=== PATIENT | female | born 1995 | race Caucasian/White ===

== ENCOUNTER 2017-06-23 17:01 | Emergency (ER) | payer MEDICAID, OTHER ==
--- NOTE | 2017-06-23 17:51 | PD ---
HPI Chief Complaint Lower abdominal pain. Travel History International Travel<30 Days: No Contact w/Intl Traveler<30Days: No Known Affected Area: No History of Present Illness HPI at 21w 4d with lower abdominal pain. YAIR 11-01-17. Reports beginning last week, but has not experienced any for the last 2 days. Denies urinary or bowel problems. Denies LOF/VB. : 1 History Past Medical History Medical History: Denies Significant Hx Past Surgical History Surgical History: No Previous Surgery Family History Family History: Negative Social History Alcohol Use: No Tobacco Use: No Substance Abuse: No Allergies-Medications (Allergen,Severity, Reaction): Coded Allergies: amoxicillin (Unverified Allergy, Severe, 05/26/17) cefaclor (Unverified Allergy, Severe, 05/26/17) Home Meds Active Scripts W/O Vit A W/ Fe Carbo (Prenate Mini 18-0.6-0.4-350 mg) 1 Cap Cap Prov:Radha Vogt 04/28/17 Physical Exam AFVSS BP 122/65 Narrative GENERAL: Well-nourished, well-developed patient. SKIN: Warm and dry. HEAD: Normocephalic and atraumatic. EYES: No scleral icterus. No injection or drainage. ENT: No nasal drainage noted. Mucous membranes pink. Airway patent. NECK: Supple, trachea midline. No JVD. CARDIOVASCULAR: Regular rate and rhythm without murmurs, gallops, or rubs. RESPIRATORY: Breath sounds equal bilaterally. No accessory muscle use. BREASTS: Bilateral exam showed no masses , no retractions, no nipple discharge. ABDOMEN/GI: Abdomen soft, non-tender, bowel sounds present, no rebound, no guarding Gravid to [-] weeks size Fundal Height: [-] GENITOURINARY: External Genitalia: intact and normal in appearance BUS glands: [-] Cervix: [-] Dilatation: [-] Effacement: [-] Station: [-] Presentation: [-] Membranes: [intact or ruptured] Uterine Contractions: [none] FHT's: 150s Category: [-] Baseline: [-] Reactive: [-] Variability: [-] Decels: [-] EXTREMITIES: No cyanosis or edema. BACK: Nontender without obvious deformity. No CVA tenderness. NEUROLOGICAL: Awake and alert. Motor and sensory grossly within normal limits. Five out of 5 muscle strength in all muscle groups. Normal speech. Data Data Vital Signs Reviewed: Yes MDM Interpretation(s) IUP at 21w 4d with lower abdominal pain. Plan Will monitor. Supportive therapies, OTC medication, and hydration d/w patient. Close f/u with OB provider encouraged. All questions answered. Diagnosis Diagnosis: Primary Impression: 21 weeks gestation of Additional Impression: Abdominal pain during in second trimester Disposition: 01 DISCHARGE HOME Condition: Stable Marni Randolph MD Jun 23, 2017 17:51
[2017-07-08] MEDS ORDERED: PREN1CAP PO (10:56)
[2017-07-15] MEDS ORDERED: PREN1TAB20 PO (16:17)
[2017-07-19] MEDS ORDERED: ZANT150T2 PO (09:54)
== END 2017-06-23 18:58 | disposition home or self-care (01) ==
LOC: HOBED 17:01
DX: O26.892 Other specified pregnancy related conditions, second trimester (principal); R10.30 Lower abdominal pain, unspecified; Z3A.21 21 weeks gestation of pregnancy
CPT/HCPCS: 99283

== ENCOUNTER → 2017-07-08 | Outpatient (CLI) | payer MEDICAID ==
[~2017-07-08] MED LIST: PREN1CAP PO; PREN1TAB20 PO; ZANT150T2 PO
== END ==
LOC: HPND 13:31
PROVIDERS: ATTEND Obstetrics & Gynecology
DX: Z36 Encounter for antenatal screening of mother (principal); Z3A.22 22 weeks gestation of pregnancy
CPT/HCPCS: 76805

== ENCOUNTER 2017-09-28 04:34 | Emergency (ER) | payer MEDICAID ==
[~2017-09-28 04:34] MED LIST changes: -PREN1CAP PO
[2017-09-28 05:28] LABS: AMORPHOUS SEDIMENT, URINE RARE; BACTERIA, URINE MOD /hpf; BILIRUBIN, URINE NEG (NEG); BLOOD, URINE TRACE (NEG); GLUCOSE,URINE NEG (NEG); KETONE, URINE NEG (NEG); MUCUS URINE FEW /lpf (OCC); NITRITE,URINE NEG (NEG); RENAL EPITHELIAL CELLS <1 /hpf; SQUAMOUS EPITHELIAL CELL URINE 31 /hpf (0-5); URINE COLOR YELLOW (YELLW/STRAW); URINE LEUKOCYTE ESTERASE LARGE (NEG)
--- NOTE | 2017-09-28 05:34 | PD ---
HPI Chief Complaint pressure/ctx Date Seen: Sep 28, 2017 Time Seen: 05:24 Travel History International Travel<30 Days: No Contact w/Intl Traveler<30Days: No Known Affected Area: No History of Present Illness HPI Pt is a 22y/o G1 @ 35.1wks. She has PNC at [facility]. She presents to triage for c/o pelvic pain and pressure. She denies LOF, VB, or ctx. +FM. is complicated by SGA. Pt is having routine US for growth. Weeks Gestation: 35 Para: 0 : 1 History Past Medical History Medical History: Denies Significant Hx Obstetric History Obstetric History 1. current Past Surgical History Narrative Surgical wisdom teeth extraction appendectomy Family History Family History: Negative Social History Alcohol Use: No Tobacco Use: No Substance Abuse: No Allergies-Medications (Allergen,Severity, Reaction): Coded Allergies: amoxicillin (Unverified Allergy, Severe, 09/24/17) cefaclor (Unverified Allergy, Severe, 09/24/17) Home Meds Active Scripts Ranitidine (Zantac) 150 Mg Tab, 150 MG PO BID for Reduce Stomach Acid, #60 TAB 6 Refills Prov:Milvia RodriguezP 07/19/17 W/O Vit A W/ Fe Carbonyl (Citranatal Rx) 27-1 Mg Tab, 1 TAB PO DAILY for Nutritional Supplement, #30 TAB 11 Refills Prov:Milvia RodriguezP 07/15/17 W/O Vit A W/ Fe Carbo (Prenate Mini 18-0.6-0.4-350 mg) 1 Cap Cap Prov:Radha Vogt CNM [place] 04/28/17 Review of Systems Except as stated in HPI: all other systems reviewed are Neg Physical Exam Narrative General: well developed, well nourished, no acute distress HEENT: normocephalic atraumatic, extraocular movements intact, neck supple Abdomen: soft, gravid, nontender, nondistended Uterus: fundus non-tender Extremities: full range of motion Skin: normal coloration, no rashes, no suspicious skin lesions noted Neurologic: cranial nerves 2-12 grossly intact, normal muscle tone, normal gait Psychiatric: normal mood and affect, appropriate FHTs: 135, +accels, single mild variable associated with movement, moderate variability, reactive [place]: quiet Cvx: FT/th/-2 UA: large LE, trace blood, trace protein, neg nitrites Data Data Vital Signs Reviewed: Yes Orders Orders Vital Signs (Adult) .ON ADMISSION (09/28/17 05:11) ^ Labor Status (09/28/17 05:11) Urinalysis - C+S If Indicated (09/28/17 05:11) ^ Non Stress Test (09/28/17 05:11) Labs Laboratory Tests Test 09/28/17 05:03 MDM Plan 22y/o G1 @ 35.1wks with UTI -- Rx macrobid -- NST reactive -- cvx finger tip Dispo: stable for d/c home with precautions, f/u on as scheduled for PNC Diagnosis Diagnosis: Primary Impression: 35 weeks gestation of Additional Impressions: UTI (urinary tract infection) during Pelvic pain affecting in third trimester, antepartum SGA (small for gestational age) Irene Shipley MD Sep 28, 2017 05:34
[2017-09-28] MEDS ORDERED: AZIT500T2 PO (09:20)
== END 2017-09-28 05:34 | disposition home or self-care (01) ==
LOC: HOBED 04:50
DX: O23.43 Unspecified infection of urinary tract in pregnancy, third trimester (principal); B96.89 Other specified bacterial agents as the cause of diseases classified elsewhere; O36.5930 Maternal care for other known or suspected poor fetal growth, third trimester, not applicable or unspecified; Z3A.35 35 weeks gestation of pregnancy
CPT/HCPCS: 59025; 81001; 87086

== ENCOUNTER 2017-09-28 14:07 | Inpatient (IN) | payer MEDICAID ==
[~2017-09-28] VITALS: Ht 162.6 cm; Wt 63.5 kg
[2017-09-28] VITALS (24 sets, daily range): BP systolic 99–143; BP diastolic 55–91; PULSE 66–113; RESP 16–18; TEMP 98.6
[~2017-09-28 14:07] MED LIST changes: +AZIT500T2 PO
[2017-09-28] MEDS ORDERED: LACTATED RINGER'S 1000 ML INJ 1,000 ML IV PRN (14:41)
[2017-09-28] MEDS ORDERED: LACTATED RINGER'S 1000 ML INJ 1,000 ML IV SCH (14:41)
[2017-09-28] MEDS ORDERED: SODIUM CHLORID 0.9% 500 ML INJ 500 ML IV PRN (14:45)
[2017-09-28] MEDS ORDERED: OXYTOCIN 30 UNITS-500ML PREMIX 500 ML IV ONE ×2 (14:45→17:45)
[2017-09-28] MEDS ORDERED: CITRIC ACID-SODIUM CITRATE LIQ 30 ML UDC PO SCH (14:45)
[2017-09-28] MEDS ORDERED: LIDOCAINE HCL 1% 50 ML VIAL I-DERMAL PRN (14:45)
[2017-09-28] MEDS ORDERED: LIDOCAINE HCL 1% 50 ML VIAL INFIL PRN (14:45)
[2017-09-28] MEDS ORDERED: MINERAL OIL 10 ML VIAL TOPICAL PRN (14:45)
[2017-09-28] MEDS ORDERED: SODIUM CHLOR 0.9% 1000 ML INJ 1,000 ML IV PRN (15:01)
[2017-09-28] MEDS ORDERED: fentaNYL 2MCG-BUPIV 0.125% INJ 100 ML ONE (15:13)
[2017-09-28 15:27] LABS: AUTOMATED NEUTROPHIL # 11.6 TH/MM3 (1.8-7.7); BASOPHIL % 0.1 % (0.0-2.0); EOSINOPHIL % 0.2 % (0.0-4.0); HEMATOCRIT 38.3 % (35.0-46.0); HEMO FLAGS DIFF FINAL; LYMPH % 11.9 % (9.0-44.0); LYMPHOCYTE # 1.7 TH/MM3 (1.0-4.8); MEAN CELL VOLUME 86.5 FL (80.0-100.0); MEAN CORPUSCULAR HEMOGLOBIN 30.5 PG (27.0-34.0); MEAN CORPUSCULAR HGB CONC 35.2 % (32.0-36.0); MONO % 8.3 % (0.0-8.0); NEUT % 79.5 % (16.0-70.0); PLATELET COUNT 136 TH/MM3 (150-450); RED BLOOD COUNT 4.42 MIL/MM3 (4.00-5.30); RED CELL DISTRIBUTION WIDTH 12.9 % (11.6-17.2); WHITE BLOOD COUNT 14.6 TH/MM3 (4.0-11.0)
[2017-09-28] MEDS ORDERED: DIPHTH/TETANUS/ACEL PERTUSSIS (BOOSTER) 0.5 ML VIAL/PFS IM ONE (16:00)
[2017-09-28] MEDS ORDERED: VANCOMYCIN INJ 1,000 MG in SODIUM CHLOR 0.9% 250 ML INJ 250 ML IV SCH (16:00)
[2017-09-28] MEDS ORDERED: MEASLES, MUMPS, RUBELLA VACCINE 0.5 ML VIAL SQ ONE (16:00)
[2017-09-28] MEDS ORDERED: DO NOT ADMINISTER ANTICOAGULANTS PRN (16:15)
[2017-09-28] MEDS ORDERED: fentaNYL 2MCG-BUPIV 0.125% 100 ML EPIDURAL SCH (16:15)
[2017-09-28] MEDS ORDERED: NO SYSTEM NARCOTICS PRN (16:15)
[2017-09-28] MEDS ORDERED: ePHEDrine/NS 25 MG/5 ML SYRINGE IV PUSH PRN (16:15)
--- NOTE | 2017-09-28 16:16 | PD ---
HPI Chief Complaint contractions, labor Date Seen: Sep 28, 2017 Time Seen: 14:40 Travel History International Travel<30 Days: No Contact w/Intl Traveler<30Days: No History of Present Illness HPI Patient is a 22 year old at 35 and 1/7 weeks gestation, EDC 11/01/2017, who presents to the OB ED reporting contractions and dilation of 6cm in clinic. She denies leakage of fluid, vaginal bleeding. She feels baby moving regularly. She denies HOOK/N/V/D/fever/sick contacts/SOB/calf pain/dizziness/seeing spots. OB care is with [facility]. History Past Medical History Medical History: Denies Significant Hx Past Surgical History Surgical History: No Previous Surgery Family History Family History: Negative Social History Alcohol Use: No Tobacco Use: No Substance Abuse: No Allergies-Medications (Allergen,Severity, Reaction): Coded Allergies: amoxicillin (Unverified Allergy, Severe, 09/28/17) cefaclor (Unverified Allergy, Severe, 09/28/17) Home Meds Active Scripts Azithromycin (Azithromycin) 500 Mg Tab, 500 MG PO DAILY for Infection, #7 TAB 0 Refills Prov:Pancho Rene MD 09/28/17 Ranitidine (Zantac) 150 Mg Tab, 150 MG PO BID for Reduce Stomach Acid, #60 TAB 6 Refills Prov:Milvia Rodriguez 07/19/17 W/O Vit A W/ Fe Carbonyl (Citranatal Rx) 27-1 Mg Tab, 1 TAB PO DAILY for Nutritional Supplement, #30 TAB 11 Refills Prov:Milvia Rodriguez 07/15/17 W/O Vit A W/ Fe Carbo (Prenate Mini 18-0.6-0.4-350 mg) 1 Cap Cap Prov:Radha Vogt CNMP 04/28/17 Review of Systems Except as stated in HPI: all other systems reviewed are Neg Physical Exam Vital Signs Date Time Temp Pulse Resp B/P (MAP) Pulse Ox O2 Delivery O2 Flow Rate FiO2 09/28/17 15:40 66 121/60 (80) 09/28/17 15:36 73 128/55 (79) 09/28/17 15:35 68 09/28/17 15:33 73 143/91 (108) 09/28/17 15:30 73 Narrative GENERAL: Well-nourished, well-developed patient. SKIN: Warm and dry. HEAD: Normocephalic and atraumatic. EYES: No scleral icterus. No injection or drainage. ENT: No nasal drainage noted. Mucous membranes pink. Airway patent. NECK: Supple, trachea midline. No JVD. CARDIOVASCULAR: Regular rate and rhythm without murmurs, gallops, or rubs. RESPIRATORY: Breath sounds equal bilaterally. No accessory muscle use. ABDOMEN/GI: Abdomen gravid, palpates moderate on CTX, non-tender, bowel sounds present, no rebound, no guarding GENITOURINARY: External Genitalia: intact and normal in appearance Cervix: 7/80/-2, bulging bag Uterine Contractions: q4min FHT's: Category: 1 Baseline: 130s Reactive: 150s Variability: mod Decels: absent EXTREMITIES: No cyanosis or edema. BACK: Nontender without obvious deformity. No CVA tenderness. NEUROLOGICAL: Awake and alert. Motor and sensory grossly within normal limits. Five out of 5 muscle strength in all muscle groups. Normal speech. Data Data Vital Signs Reviewed: Yes Orders Orders Ob (2e) Additional Admit Info (09/28/17 14:33) Admit To Inpatient (09/28/17 ) Code Status (09/28/17 14:41) Vital Signs (Adult) .Per protocol (09/28/17 14:41) Activity Oob Ad Sanaz (09/28/17 14:41) Heart (09/28/17 14:41) Amnioinfusion (09/28/17 14:41) Urinary Catheter Management .ONCE (09/28/17 14:41) Diet Npo (09/28/17 Dinner) Lactated Ringer's 1000 Ml Inj (Lr 1000 M (09/28/17 14:41) Lactated Ringer's 1000 Ml Inj (Lr 1000 M (09/28/17 14:41) Sodium Chlorid 0.9% 500 Ml Inj (Ns 500 M (09/28/17 14:45) Sodium Chlor 0.9% 1000 Ml Inj (Ns 1000 M (09/28/17 15:01) Lidocaine 1% Inj (50 Ml) (Xylocaine 1% I (09/28/17 14:45) Citric Acid-Sodium Citrate Liq (Bicitra (09/28/17 14:45) Fentanyl Inj (Fentanyl Inj) (09/28/17 14:45) Fentanyl Inj (Fentanyl Inj) (09/28/17 14:45) Vancomycin Inj (Vancomycin Inj) (09/28/17 16:00) Complete Blood Count With Diff (09/28/17 14:41) Hold Clot (09/28/17 14:41) Abo/Rh Blood Type (09/28/17 14:41) Urinalysis - C+S If Indicated (09/28/17 14:41) Drug Screen, Random Urine (09/28/17 14:41) Resp Oxygen Non Rebreathe Mask (09/28/17 ) ^ Epidural / Intrathecal Infus (09/28/17 14:41) Oxytocin 30 Units-500ml Premix (Pitocin (09/28/17 14:45) Lidocaine 1% Inj (50 Ml) (Xylocaine 1% I (09/28/17 14:45) Light Mineral Oil (Muri-Lube Oil) (09/28/17 14:45) Inpatient Certification (09/28/17 ) Specimen To Be Collected PRN (09/28/17 14:41) Specimen To Be Collected PRN (09/28/17 14:41) Fentanyl 2mcg-Bupiv 0.125% Inj (Fentanyl (09/28/17 15:13) ^ Place On Chart (09/28/17 ) ^ Medication Indications (09/28/17 ) Consent (09/28/17 ) ^ No Systemic Narcotics (09/28/17 ) ^ Call Anesthesiologist (09/28/17 ) ^ Discontinue Epidural Cathete (09/28/17 ) Anticoagulant Alert (09/28/17 ) ^ Epidural Alert (09/28/17 ) Group B Strep: Positive Labs Laboratory Tests Test 09/28/17 14:45 White Blood Count 14.6 Red Blood Count 4.42 Hemoglobin 13.5 Hematocrit 38.3 Mean Corpuscular Volume 86.5 Mean Corpuscular Hemoglobin 30.5 Mean Corpuscular Hemoglobin Concent 35.2 Red Cell Distribution Width 12.9 Platelet Count 136 Mean Platelet Volume 10.0 Neutrophils (%) (Auto) 79.5 Lymphocytes (%) (Auto) 11.9 Monocytes (%) (Auto) 8.3 Eosinophils (%) (Auto) 0.2 Basophils (%) (Auto) 0.1 Neutrophils # (Auto) 11.6 Lymphocytes # (Auto) 1.7 Monocytes # (Auto) 1.2 Eosinophils # (Auto) 0.0 Basophils # (Auto) 0.0 CBC Comment DIFF FINAL Differential Comment MDM Medical Record Reviewed: Yes Narrative Course / MDM 22 year old at 35 and 1/7 weeks gestation, EDC 11/01/2017, who presents to the OB ED reporting contractions and dilation of 6cm in clinic. She denies leakage of fluid, vaginal bleeding. She feels baby moving regularly. She denies HOOK/N/V/D/fever/sick contacts/SOB/calf pain/dizziness/seeing spots. OB care is with [facility]. Intrauterine , labor: Category 1 tracing EFW 2400g based on US 2 weeks ago showing EFW 4lb 3oz GBS positive, allergy to PCN, will give Vancomycin Will obtain routine labs incl CBC, CMP, UA IV fluids Epidural Monitor heart tones Routine care GBS positive: Start IV Vancomycin SABINEW Araseli Peña MD R2 Sep 28, 2017 16:16
--- NOTE | 2017-09-28 16:24 | HHI.HP ---
HPI Chief Complaint Labor Date Seen: Sep 28, 2017 Time Seen: 16:22 Travel History International Travel<30 Days: No Contact w/Intl Traveler<30Days: No History of Present Illness HPI Patient is a 22 year old at 35 and 1/7 weeks gestation, EDC 11/01/2017, who presents to the OB ED reporting contractions and dilation of 6cm in clinic. She denies leakage of fluid, vaginal bleeding. She feels baby moving regularly. She denies HOOK/N/V/D/fever/sick contacts/SOB/calf pain/dizziness/seeing spots. OB care is with [facility]. History Past Medical History Medical History: Denies Significant Hx Past Surgical History Surgical History: No Previous Surgery Family History Family History: Negative Social History Alcohol Use: No Tobacco Use: No Substance Abuse: No Allergies-Medications (Allergen,Severity, Reaction): Coded Allergies: amoxicillin (Unverified Allergy, Severe, 09/28/17) cefaclor (Unverified Allergy, Severe, 09/28/17) Home Meds Active Scripts Azithromycin (Azithromycin) 500 Mg Tab, 500 MG PO DAILY for Infection, #7 TAB 0 Refills Prov:Pancho Rene MD 09/28/17 Ranitidine (Zantac) 150 Mg Tab, 150 MG PO BID for Reduce Stomach Acid, #60 TAB 6 Refills Prov:Milvia Rodriguez 07/19/17 W/O Vit A W/ Fe Carbonyl (Citranatal Rx) 27-1 Mg Tab, 1 TAB PO DAILY for Nutritional Supplement, #30 TAB 11 Refills Prov:Milvia Rodriguez 07/15/17 W/O Vit A W/ Fe Carbo (Prenate Mini 18-0.6-0.4-350 mg) 1 Cap Cap Prov:Radha Vogt CNMP 04/28/17 Review of Systems Except as stated in HPI: all other systems reviewed are Neg Physical Exam Vital Signs Date Time Temp Pulse Resp B/P (MAP) Pulse Ox O2 Delivery O2 Flow Rate FiO2 09/28/17 16:05 83 99/58 (72) 09/28/17 16:00 70 105/58 (74) 09/28/17 15:40 66 121/60 (80) 09/28/17 15:36 73 128/55 (79) 09/28/17 15:35 68 09/28/17 15:33 73 143/91 (108) 09/28/17 15:30 73 Narrative GENERAL: Well-nourished, well-developed patient. SKIN: Warm and dry. HEAD: Normocephalic and atraumatic. EYES: No scleral icterus. No injection or drainage. ENT: No nasal drainage noted. Mucous membranes pink. Airway patent. NECK: Supple, trachea midline. No JVD. CARDIOVASCULAR: Regular rate and rhythm without murmurs, gallops, or rubs. RESPIRATORY: Breath sounds equal bilaterally. No accessory muscle use. ABDOMEN/GI: Abdomen gravid, palpates moderate on CTX, non-tender, bowel sounds present, no rebound, no guarding GENITOURINARY: External Genitalia: intact and normal in appearance Cervix: 7/80/-2, bulging bag Uterine Contractions: q4min FHT's: Category: 1 Baseline: 130s Reactive: 150s Variability: mod Decels: absent EXTREMITIES: No cyanosis or edema. BACK: Nontender without obvious deformity. No CVA tenderness. NEUROLOGICAL: Awake and alert. Motor and sensory grossly within normal limits. Five out of 5 muscle strength in all muscle groups. Normal speech. Caprini VTE Risk Assessment Caprini VTE Risk Assessment: No/Low Risk (score <= 1) Caprini Risk Assessment Model Point Value = 1 Point Value = 2 Point Value = 3 Point Value = 5 Age 41-60 Minor surgery BMI > 25 kg/m2 Swollen legs Varicose veins or History of unexplained or recurrent spontaneous Oral contraceptives or hormone replacement Sepsis (< 1 month) Serious lung disease, including pneumonia (< 1 month) Abnormal pulmonary function Acute myocardial infarction Congestive heart failure (< 1 month) History of inflammatory bowel disease Medical patient at bed rest Age 61-74 Arthroscopic surgery Major open surgery (> 45 min) Laparoscopic surgery (> 45 min) Malignancy Confined to bed (> 72 hours) Immobilizing plaster cast Central venous access Age >= 75 History of VTE Family history of VTE Factor V Leiden Prothrombin [id number] Lupus anticoagulant Anticardiolipin antibodies Elevated serum homocysteine Heparin-induced thrombocytopenia Other congenital or acquired thrombophilia Stroke (< 1 month) Elective arthroplasty Hip, pelvis, or leg fracture Acute spinal cord injury (< 1 month) Prophylaxis Regimen Total Risk Factor Score Risk Level Prophylaxis Regimen 0-1 Low Early ambulation 2 Moderate Order ONE of the following: *Sequential Compression Device (SCD) *Heparin 5000 units SQ BID 3-4 Higher Order ONE of the following medications: *Heparin 5000 units SQ TID *Enoxaparin/Lovenox 40 mg SQ daily (WT < 150 kg, CrCl > 30 mL/min) *Enoxaparin/Lovenox 30 mg SQ daily (WT < 150 kg, CrCl > 10-29 mL/min) *Enoxaparin/Lovenox 30 mg SQ BID (WT < 150 kg, CrCl > 30 mL/min) AND/OR *Sequential Compression Device (SCD) 5 or more Highest Order ONE of the following medications: *Heparin 5000 units SQ TID (Preferred with Epidurals) *Enoxaparin/Lovenox 40 mg SQ daily (WT < 150 kg, CrCl > 30 mL/min) *Enoxaparin/Lovenox 30 mg SQ daily (WT < 150 kg, CrCl > 10-29 mL/min) *Enoxaparin/Lovenox 30 mg SQ BID (WT < 150 kg, CrCl > 30 mL/min) AND *Sequential Compression Device (SCD) Data Data Vital Signs Reviewed: Yes (wnl) Orders Orders Ob (2e) Additional Admit Info (09/28/17 14:33) Admit To Inpatient (09/28/17 ) Code Status (09/28/17 14:41) Vital Signs (Adult) .Per protocol (09/28/17 14:41) Activity Oob Ad Sanaz (09/28/17 14:41) Heart (09/28/17 14:41) Amnioinfusion (09/28/17 14:41) Urinary Catheter Management .ONCE (09/28/17 14:41) Diet Npo (09/28/17 Dinner) Lactated Ringer's 1000 Ml Inj (Lr 1000 M (09/28/17 14:41) Lactated Ringer's 1000 Ml Inj (Lr 1000 M (09/28/17 14:41) Sodium Chlorid 0.9% 500 Ml Inj (Ns 500 M (09/28/17 14:45) Sodium Chlor 0.9% 1000 Ml Inj (Ns 1000 M (09/28/17 15:01) Lidocaine 1% Inj (50 Ml) (Xylocaine 1% I (09/28/17 14:45) Citric Acid-Sodium Citrate Liq (Bicitra (09/28/17 14:45) Fentanyl Inj (Fentanyl Inj) (09/28/17 14:45) Fentanyl Inj (Fentanyl Inj) (09/28/17 14:45) Vancomycin Inj (Vancomycin Inj) (09/28/17 16:00) Complete Blood Count With Diff (09/28/17 14:41) Hold Clot (09/28/17 14:41) Abo/Rh Blood Type (09/28/17 14:41) Urinalysis - C+S If Indicated (09/28/17 14:41) Drug Screen, Random Urine (09/28/17 14:41) Resp Oxygen Non Rebreathe Mask (09/28/17 ) ^ Epidural / Intrathecal Infus (09/28/17 14:41) Oxytocin 30 Units-500ml Premix (Pitocin (09/28/17 14:45) Lidocaine 1% Inj (50 Ml) (Xylocaine 1% I (09/28/17 14:45) Light Mineral Oil (Muri-Lube Oil) (09/28/17 14:45) Inpatient Certification (09/28/17 ) Specimen To Be Collected PRN (09/28/17 14:41) Specimen To Be Collected PRN (09/28/17 14:41) Fentanyl 2mcg-Bupiv 0.125% Inj (Fentanyl (09/28/17 15:13) ^ Place On Chart (09/28/17 ) ^ Medication Indications (09/28/17 ) Consent (09/28/17 ) ^ No Systemic Narcotics (09/28/17 ) ^ Call Anesthesiologist (09/28/17 ) ^ Discontinue Epidural Cathete (09/28/17 ) Anticoagulant Alert (09/28/17 ) ^ Epidural Alert (09/28/17 ) Misc Nursing Information (09/28/17 16:15) Misc Nursing Information (09/28/17 16:15) Fentanyl Inj (Fentanyl Inj) (09/28/17 16:15) Fentanyl 2mcg-Bupiv 0.125% Inj (Fentanyl (09/28/17 16:15) Ephedrine/Ns 25 Mg/5 Ml Syr (Ephedrine/N (09/28/17 16:15) Group B Strep: Positive Labs Laboratory Tests Test 09/28/17 14:45 White Blood Count 14.6 Red Blood Count 4.42 Hemoglobin 13.5 Hematocrit 38.3 Mean Corpuscular Volume 86.5 Mean Corpuscular Hemoglobin 30.5 Mean Corpuscular Hemoglobin Concent 35.2 Red Cell Distribution Width 12.9 Platelet Count 136 Mean Platelet Volume 10.0 Neutrophils (%) (Auto) 79.5 Lymphocytes (%) (Auto) 11.9 Monocytes (%) (Auto) 8.3 Eosinophils (%) (Auto) 0.2 Basophils (%) (Auto) 0.1 Neutrophils # (Auto) 11.6 Lymphocytes # (Auto) 1.7 Monocytes # (Auto) 1.2 Eosinophils # (Auto) 0.0 Basophils # (Auto) 0.0 CBC Comment DIFF FINAL Differential Comment Assessment/Plan Problem List: (1) labor in third trimester ICD Codes: O60.03 - labor without delivery, third trimester Status: Acute Assessment and Plan 22 year old at 35 and 1/7 weeks gestation, EDC 11/01/2017, who presents to the OB ED reporting contractions and dilation of 6cm in clinic. She denies leakage of fluid, vaginal bleeding. She feels baby moving regularly. She denies HOOK/N/V/D/fever/sick contacts/SOB/calf pain/dizziness/seeing spots. OB care is with [facility]. Intrauterine , labor: Category 1 tracing EFW 2400g based on US 2 weeks ago showing EFW 4lb 3oz GBS positive, allergy to PCN, will give Vancomycin Will obtain routine labs incl CBC, CMP, UA IV fluids Epidural Monitor heart tones Routine care GBS positive: Start IV Vancomycin SABINEW Araseli Peña MD R2 Sep 28, 2017 16:24
[2017-09-28] MEDS ORDERED: LIDOCAINE HCL 1% 20 ML VIAL ONE (17:21)
--- NOTE | 2017-09-28 17:43 | PD.OB.DELI ---
Weeks gestation: 35 Pt started active labor?: Yes Artificial rupture of membrane: No Anesthesia: Epidural, Lidocaine local to perineum Episiotomy: Midline Vaginal Delivery: Normal Presentation: Occiput anterior Nuchal Cord: x1 Delayed cord clamping (45 sec): Yes Infant: Male Delivery date: Sep 28, 2017 Delivery time: 17:20 One Minute : 9 Five Minute : 9 Placenta: Spontaneous delivery, 3 vessel cord Laceration: 2 deg Repair: Chromic running Estimated blood loss: 200 cc. Additional Information Midline episiotomy 2nd degree repaird with 3-0 chromic running suture. Delivery assisted by Dr. Wells. Stevie Mccabe MD, R3 Sep 28, 2017 17:43
[2017-09-28] MEDS ORDERED: ZOLPIDEM TARTRATE 5 MG TAB PO PRN (17:45)
[2017-09-28] MEDS ORDERED: SODIUM CHLORIDE 0.9% FLUSH 10 ML FLUSH IV FLUSH PRN (17:45)
[2017-09-28] MEDS ORDERED: OXYTOCIN 30 UNITS-500ML PREMIX 500 ML IV SCH (17:45)
[2017-09-28] MEDS ORDERED: ALUMINUM/MAGNESIUM/SIMETH 30 ML CUP PO PRN (17:45)
[2017-09-28] MEDS ORDERED: BENZOCAINE 20% TOPICAL SPRAY 60 ML CAN TOPICAL PRN (17:45)
[2017-09-28] MEDS ORDERED: WITCH HAZEL 50%/GLYCERIN 12.5% 40 PAD JAR TOPICAL PRN (17:45)
[2017-09-28] MEDS ORDERED: ONDANSETRON ODT 4 MG TAB PO PRN (17:45)
[2017-09-28] MEDS: IBUPROFEN 800 MG TAB PO PRN (20:56)
[2017-09-28] MEDS ORDERED: SODIUM CHLORIDE 0.9% FLUSH 10 ML FLUSH IV FLUSH SCH (21:00)
[2017-09-28] MEDS: ACETAMINOPHEN 325 MG TAB PO PRN (23:45)
[2017-09-29] VITALS: BP 128/69; PULSE 79; RESP 18; TEMP 97.6; O2SAT 99
[2017-09-29 08:00] VITALS: BP 128/83; PULSE 79; RESP 16; TEMP 98.1
[2017-09-29] MEDS: IBUPROFEN 800 MG TAB PO PRN ×2 (08:09→16:16)
[2017-09-29] MEDS: ACETAMINOPHEN 325 MG TAB PO PRN ×2 (08:09→13:41)
--- NOTE | 2017-09-29 08:52 | HHI.OB ---
Subjective Post Day: 1 Remarks day # 1. AFVSS overnight. Decreased lochia. Denies dysuria. No breast tenderness. She is feeding the baby via breast.. Appetite good. No nausea or vomiting. Ambulating well. Denies calf pain or shortness of breath. Otherwise, she is doing well this morning and has no other concerns. Objective Vitals/I&O Vital Signs Date Time Temp Pulse Resp B/P (MAP) Pulse Ox O2 Delivery O2 Flow Rate FiO2 09/29/17 00:00 97.6 18 99 09/29/17 00:00 79 128/69 (88) 09/28/17 21:00 89 126/72 (90) 09/28/17 20:43 98.6 91 18 114/74 (87) 09/28/17 20:09 92 18 119/73 (88) 09/28/17 19:00 98.6 09/28/17 19:00 18 09/28/17 18:45 80 09/28/17 18:45 18 09/28/17 18:45 125/61 (82) 09/28/17 18:30 82 122/88 (99) 09/28/17 18:24 16 09/28/17 18:15 77 103/67 (79) 09/28/17 18:13 16 09/28/17 18:00 113 109/58 (75) 09/28/17 17:56 16 09/28/17 17:45 92 127/60 (82) 09/28/17 17:38 94 126/65 (85) 09/28/17 17:38 16 09/28/17 17:38 16 09/28/17 16:10 73 115/64 (81) 09/28/17 16:05 83 99/58 (72) 09/28/17 16:00 70 105/58 (74) 09/28/17 15:55 72 111/56 (74) 09/28/17 15:50 79 107/59 (75) 09/28/17 15:45 75 114/61 (78) 09/28/17 15:40 66 121/60 (80) 09/28/17 15:36 73 128/55 (79) 09/28/17 15:35 68 09/28/17 15:33 73 143/91 (108) 09/28/17 15:30 73 Objective Remarks GENERAL: Well-nourished, well-developed patient. CARDIOVASCULAR: Regular rate and rhythm without murmurs, gallops, or rubs. RESPIRATORY: Breath sounds equal bilaterally. No accessory muscle use. ABDOMEN/GI: Abdomen soft, non-tender. Fundus: Firm, non-tender at umbilicus. GENITOURINARY: Light to moderate bleeding. EXTREMITIES: No cyanosis or edema, non-tender, without signs of DVT. Medications and IVs Current Medications Medications (Trade) Dose Ordered Sig/Duyen Route Start Time Stop Time Status Last Admin (NS Flush) 2 ml BID IV FLUSH 09/28/17 21:00 (NS Flush) 2 ml UNSCH PRN IV FLUSH 09/28/17 17:45 (Tylenol) 650 mg Q4H PRN PO 09/28/17 17:45 09/29/17 08:09 (Motrin) 800 mg Q8H PRN PO 09/28/17 17:45 09/29/17 08:09 (Americaine 20% Top Spr) 1 spray Q4H PRN TOPICAL 09/28/17 17:45 09/28/17 23:45 (Tucks Pads) 1 applic QID PRN TOPICAL 09/28/17 17:45 09/28/17 23:45 (Steff-Colace) 2 tab Q12H PRN PO 09/28/17 17:45 (Ambien) 5 mg HS PRN PO 09/28/17 17:45 (Mag-Al Plus Susp Liq) 15 ml Q8H PRN PO 09/28/17 17:45 (Zofran Odt) 4 mg Q6H PRN PO 09/28/17 17:45 Assessment/Plan Problem List: (1) labor in third trimester ICD Codes: O60.03 - labor without delivery, third trimester Status: Acute Assessment and Plan 22 y/o female who is PPD# 1 s/p . GBS positive. -Continue routine care. -Percocet and Motrin PRN pain. -Encouraged OOB. Advised pelvic rest for 6 wks. -Re: ctrl, she is undecided. -Anticipate discharge tomorrow. Araseli Grimm Dr., MD R2 Sep 29, 2017 08:52
[2017-09-29 11:36] LABS: HEMATOCRIT 32.3 % (35.0-46.0); MEAN CELL VOLUME 87.2 FL (80.0-100.0); MEAN CORPUSCULAR HEMOGLOBIN 30.1 PG (27.0-34.0); MEAN CORPUSCULAR HGB CONC 34.5 % (32.0-36.0); PLATELET COUNT 121 TH/MM3 (150-450); RED BLOOD COUNT 3.71 MIL/MM3 (4.00-5.30); RED CELL DISTRIBUTION WIDTH 12.8 % (11.6-17.2); REVIEW FLAG FINAL; WHITE BLOOD COUNT 15.2 TH/MM3 (4.0-11.0)
[2017-09-29] MEDS: DOCUSATE SODIUM 50 MG/SENNA 8.6 MG TAB PO PRN (13:41)
[2017-09-29 20:25] VITALS: BP 120/74; PULSE 75; RESP 18; TEMP 98.1
[2017-09-30] MEDS: ACETAMINOPHEN 325 MG TAB PO PRN ×2 (00:33→08:36)
[2017-09-30] MEDS: IBUPROFEN 800 MG TAB PO PRN ×2 (00:34→08:36)
[2017-09-30] MEDS ORDERED: IBUP1TAB7 PO (06:54)
--- NOTE | 2017-09-30 06:55 | HHI.DCPOC ---
Discharge Care Plan Diagnosis: (1) Term delivered vaginally, current hospitalization Report Symptoms to Your Doctor -Temperature above 100.5 degrees -Redness, of incision or excessive or foul smelling drainage -Unusual pain or calf pain -Increased vaginal bleeding -Painful or difficulty urinating -Feelings of extreme sadness or anxiety after 2 weeks Goals to Promote Your Health * To prevent worsening of your condition and complications * To maintain your health at the optimal level Directions to Meet Your Goals Take your medications as prescribed Follow your dietary instruction Follow activity as directed Ensure plenty of rest for recovery Drink fluids for hydration Keep your appointments as scheduled Take your immunizations and boosters as scheduled If your symptoms worsen call your PCP, if no PCP go to Urgent Care Center or Emergency Room Smoking is Dangerous to Your Health. Avoid second hand smoke Call the 24-hour crisis hotline for domestic abuse at Araseli Spear MD R2 Sep 30, 2017 06:55
[2017-09-30 07:30] VITALS: BP 110/66; PULSE 69; RESP 18; TEMP 98.5
--- NOTE | 2017-09-30 08:05 | HHI.OB ---
Subjective Post Day: 2 Remarks day # 2. AFVSS overnight. Decreased lochia. Denies dysuria. No breast tenderness. She is feeding the baby via breast.. Appetite good. No nausea or vomiting. Ambulating well. Denies calf pain or shortness of breath. Otherwise, she is doing well this morning and has no other concerns. Objective Vitals/I&O Vital Signs Date Time Temp Pulse Resp B/P (MAP) Pulse Ox O2 Delivery O2 Flow Rate FiO2 09/30/17 07:30 110/66 (81) 09/30/17 07:30 98.5 69 18 09/29/17 20:25 98.1 09/29/17 20:25 75 18 120/74 (89) Objective Remarks GENERAL: Well-nourished, well-developed patient. CARDIOVASCULAR: Regular rate and rhythm without murmurs, gallops, or rubs. RESPIRATORY: Breath sounds equal bilaterally. No accessory muscle use. ABDOMEN/GI: Abdomen soft, non-tender. Fundus: Firm, non-tender at umbilicus. GENITOURINARY: Light to moderate bleeding. EXTREMITIES: No cyanosis or edema, non-tender, without signs of DVT. Medications and IVs Current Medications Medications (Trade) Dose Ordered Sig/Duyen Route Start Time Stop Time Status Last Admin (NS Flush) 2 ml BID IV FLUSH 09/28/17 21:00 (NS Flush) 2 ml UNSCH PRN IV FLUSH 09/28/17 17:45 (Tylenol) 650 mg Q4H PRN PO 09/28/17 17:45 09/30/17 00:33 (Motrin) 800 mg Q8H PRN PO 09/28/17 17:45 09/30/17 00:34 (Americaine 20% Top Spr) 1 spray Q4H PRN TOPICAL 09/28/17 17:45 09/28/17 23:45 (Tucks Pads) 1 applic QID PRN TOPICAL 09/28/17 17:45 09/28/17 23:45 (Steff-Colace) 2 tab Q12H PRN PO 09/28/17 17:45 09/29/17 13:41 (Ambien) 5 mg HS PRN PO 09/28/17 17:45 (Mag-Al Plus Susp Liq) 15 ml Q8H PRN PO 09/28/17 17:45 (Zofran Odt) 4 mg Q6H PRN PO 09/28/17 17:45 (Flu (Quadrivalent) Vaccine Inj) 0.5 ml ONCE ONCE IM 09/30/17 10:00 09/30/17 10:01 09/29/17 20:33 Assessment/Plan Problem List: (1) labor in third trimester ICD Codes: O60.03 - labor without delivery, third trimester Status: Acute Assessment and Plan 22 y/o female who is PPD# 2 s/p . GBS positive. -Continue routine care. -Percocet and Motrin PRN pain. -Encouraged OOB. Advised pelvic rest for 6 wks. -Re: ctrl, she is undecided. -Anticipate discharge today. Araseli Caicedo Dr., MD R2 Sep 30, 2017 08:04
[2017-09-30] MEDS: DOCUSATE SODIUM 50 MG/SENNA 8.6 MG TAB PO PRN (08:36)
[2017-09-30] MEDS ORDERED: INFLUENZA VIRUS VACCINE (QUADRIVALENT) 0.5 ML SYR IM ONE (10:00)
== END 2017-09-30 13:59 | disposition home or self-care (01) | DRG 775 ==
LOC: HOBED 14:07 → H2EA 14:38 → H1EA 22:46
PROVIDERS: ADMIT Obstetrics & Gynecology; ATTEND Obstetrics & Gynecology
PROC: 10E0XZZ Delivery of Products of Conception, External Approach (ICD-10-PCS; principal; 2017-09-28)
PROC: 0KQM0ZZ Repair Perineum Muscle, Open Approach (ICD-10-PCS; 2017-09-28)
PROC: 0W8NXZZ Division of Female Perineum, External Approach (ICD-10-PCS; 2017-09-28)
DX: O60.14X0 Preterm labor third trimester with preterm delivery third trimester, not applicable or unspecified (principal); O99.824 Streptococcus B carrier state complicating childbirth; O69.81X0 Labor and delivery complicated by cord around neck, without compression, not applicable or unspecified; O70.1 Second degree perineal laceration during delivery; Z37.0 Single live birth; Z3A.35 35 weeks gestation of pregnancy; Z23 Encounter for immunization
CPT/HCPCS: 59025; 81001; 85025; 85027; 86900; 86901; 87086; 88307; 90686; 90707; 90715; J3370; J7050; J7120; Q2038

== ENCOUNTER 2018-01-21 21:18 | Emergency (ER) | payer MEDICAID ==
[~2018-01-21 21:18] MED LIST changes: -AZIT500T2 PO; +IBUP1TAB7 PO; -PREN1TAB20 PO
[2018-01-21 21:20] VITALS: BP 151/67; PULSE 70; RESP 20; TEMP 98.8; O2SAT 98
[2018-01-21] MEDS ORDERED: PHENERGAN W CODEIN PO (21:40)
[2018-01-21] MEDS ORDERED: ZITHTAB PO (21:40)
--- NOTE | 2018-01-21 21:41 | PD ---
HPI Chief Complaint: Cold / Flu Symptoms Time Seen by Provider: 21:31 Travel History International Travel<30 days: No Contact w/Intl Traveler<30days: No Traveled to known affect area: No History of Present Illness HPI 23-year-old female complains of sore throat, coughing congestion. Patient states that the symptoms started a week ago. Patient states the cough is persistent and productive. Patient denies any chest pain or shortness of breath. Patient denies abdominal pain. Patient denies any nausea vomiting diarrhea. Patient denies any fever chills. Patient denies any chance of being . PFSH Past Medical History Immunizations Current: Yes ?: Unknown LMP: NOW Past Surgical History Appendectomy: Yes Oral Surgery: Yes (wisdom teeth removed) Social History Alcohol Use: No Tobacco Use: No Substance Use: No Allergies-Medications (Allergen,Severity, Reaction): Coded Allergies: amoxicillin (Unverified Allergy, Severe, 10/12/17) cefaclor (Unverified Allergy, Severe, 10/12/17) Reported Meds & Prescriptions Reported Meds & Active Scripts Active Ibuprofen 800 Mg Tab 800 Mg PO Q8H PRN Zantac (Ranitidine HCl) 150 Mg Tab 150 Mg PO BID Review of Systems General / Constitutional: No: Fever Eyes: No: Visual changes HENT: Positive: Sore Throat, No: Headaches Cardiovascular: No: Chest Pain or Discomfort Respiratory: Positive: Cough, No: Shortness of Breath Gastrointestinal: No: Abdominal Pain Genitourinary: No: Dysuria Musculoskeletal: No: Pain Skin: No Rash Neurologic: No: Weakness Psychiatric: No: Depression Endocrine: No: Polydipsia Hematologic/Lymphatic: No: Easy Bruising Physical Exam Narrative GENERAL: Well-nourished, well-developed patient. SKIN: Focused skin assessment warm/dry. HEAD: Normocephalic. EYES: No scleral icterus. No injection or drainage. Throat: Mild erythematous. NECK: Supple, trachea midline. No JVD or lymphadenopathy. CARDIOVASCULAR: Regular rate and rhythm without murmurs, gallops, or rubs. RESPIRATORY: Breath sounds equal bilaterally. No accessory muscle use. GASTROINTESTINAL: Abdomen soft, non-tender, nondistended. MUSCULOSKELETAL: No cyanosis, or edema. BACK: Nontender without obvious deformity. No CVA tenderness. Neurologic exam normal. Data Data Last Documented VS Vital Signs Date Time Temp Pulse Resp B/P (MAP) Pulse Ox O2 Delivery O2 Flow Rate FiO2 01/21/18 21:20 98.8 70 20 151/67 (95) 98 MDM Medical Decision Making Medical Screen Exam Complete: Yes Emergency Medical Condition: Yes Differential Diagnosis Differential diagnosis including pharyngitis, bronchitis, pneumonia. Narrative Course 23-year-old female with sore throat and persistent productive cough. Diagnosis Primary Impression: Bronchitis Patient Instructions: General Instructions Additional Instructions: Z-Earnest as directed. Take medication as needed for cough. Tylenol for fever. Follow-up with personal physician. Return if worse. Med/Other Pt SpecificInfo: Prescription(s) given Scripts [Phenergan W Codein] No Conflict Check 10 ML PO Q8HR for Cough, #120 Prov: Joshua Slade MD 01/21/18 Azithromycin (Zithromax Z-Earnest) 250 Mg Dspk 250 MG PO DIRECTED for Infection, #1 DSPK 0 Refills 500 MG (2 tabs) day 1, then 1 tab days 2-5. Prov: Joshua Slade MD 01/21/18 Disposition: 01 DISCHARGE HOME Condition: Stable Joshua Slade MD Jan 21, 2018 21:40
== END 2018-01-21 21:52 | disposition home or self-care (01) ==
LOC: PHEFT 21:18
DX: J40 Bronchitis, not specified as acute or chronic (principal); Z88.0 Allergy status to penicillin; Z88.8 Allergy status to other drugs, medicaments and biological substances
CPT/HCPCS: 99283